=== PATIENT | male | born 1960 | race Caucasian/White ===

== ENCOUNTER → 2017-02-27 | Outpatient (CLI) | payer OTHER ==
--- NOTE | 2017-02-27 13:02 | US ---
EXAMINATION TYPE: US gallbladder DATE OF EXAM: 02/27/2017 COMPARISON: NONE CLINICAL HISTORY: K81.1 chronic cholecystitis. pt states ABD pain x 2 months EXAM MEASUREMENTS: Liver Length: 22.7 cm Gallbladder Wall: 0.2 cm CBD: 0.6 cm Right Kidney: 11.1 x 4.7 x 5.4 cm Pancreas: wnl, tail obscured by overlying bowel gas Liver: Enlarged, heterogeneous, difficult to penetrate, probable fatty sparing near GB Gallbladder: wnl Evidence for sonographic Beyer's sign: No CBD: wnl Right Kidney: wnl IMPRESSION: No gallstones or ultrasound evidence for acute cholecystitis. Diffuse fatty infiltration of liver is noted.
--- NOTE | 2017-02-27 15:41 | NM ---
Nuclear medicine hepatobiliary scan. HISTORY: Pain. The patient received 8 ounces of ensure plus and 5 mCi of Technetium 99m Choletec. There is normal hepatic extraction. The gallbladder is seen by 15 minutes. There is biliary to doyle l clearance by 30 minutes. Ejection fraction is 40%. IMPRESSION: 1. No evidence of cholecystitis. Borderline ejection fraction of 40%. Correlate clinically.
== END | disposition home or self-care (01) ==
LOC: RADUSMAIN 12:08
PROVIDERS: ATTEND Surgery
DX: K76.0 Fatty (change of) liver, not elsewhere classified (principal); R10.13 Epigastric pain
CPT/HCPCS: 76705; 78226; A9537

== ENCOUNTER 2017-03-09 07:28 | Day surgery (SDC) | payer OTHER ==
[2017-03-08 08:29] VITALS: BMI 31.7
[~2017-03-09 07:28] MED LIST: LACTATED RINGERS 1,000 ML IV SCH
[2017-03-09 07:41] VITALS: RESP 18; TEMP 97.8
[2017-03-09] MEDS ORDERED: PROPOFOL 10 MG/ML 20 ML VIAL IV ONE (07:53)
[2017-03-09] MEDS ORDERED: LIDOCAINE 1% INJ 10MG/ML (20 ML MDV) ONE (07:53)
--- NOTE | 2017-03-09 07:57 | P.GSHP ---
History of Present Illness H&P Date: 03/09/17 Chief Complaint: GERD, epigastric pain Is a 56-year-old male who presents today for EGD. He's had issues with epigastric pain and some GERD symptoms. His recent HIDA scan showed an ejection fraction 40% his ultrasound gallbladder normal. - Constitutional Constitutional: Reports as per HPI Past Medical History Past Medical History: GERD/Reflux History of Any Multi-Drug Resistant Organisms: None Reported Past Surgical History: Hernia Repair Past Anesthesia/Blood Transfusion Reactions: No Reported Reaction Smoking Status: Never smoker - Past Family History Father Family Medical History: Cancer Mother Family Medical History: Deep Vein Thrombosis (DVT) Medications and Allergies Home Medications Medication Instructions Recorded Confirmed Type No Known Home Medications [No 03/08/17 03/09/17 History Known Home Medications] Allergies Allergy/AdvReac Type Severity Reaction Status Date / Time No Known Allergies Allergy Verified 03/09/17 07:42 Surgical - Exam Vital Signs Temp Pulse Resp BP Pulse Ox 97.8 F 78 18 147/92 97 03/09/17 07:41 03/09/17 07:41 03/09/17 07:41 03/09/17 07:41 03/09/17 07:41 - General well developed, no distress - Eyes PERRL - ENT normal pinna - Neck no masses, no bruits - Respiratory normal expansion - Cardiovascular Rhythm: regular - Abdomen Abdomen: soft, non tender Assessment and Plan Plan: GERD, epigastric dull pain. We'll perform EGD.
--- NOTE | 2017-03-09 08:10 | P.OP ---
Date of Procedure: 03/09/17 Preoperative Diagnosis: Epigastric abdominal pain Postoperative Diagnosis: Duodenitis Mild antral gastritis Procedure(s) Performed: EGD Implants: Anesthesia: MAC Surgeon: Jose Alberts Pathology: other (Duodenum, antrum) Condition: stable Disposition: PACU Indications for Procedure: Operative Findings: Description of Procedure: The patient's placed on the endoscopy table in the lateral position. He received IV sedation. The gastroscope placed oropharynx passed in the esophagus and stomach. Scope was then placed through the pylorus. The first and second portion of the duodenum appeared minimally inflamed and a biopsies performed. Scope was then brought back into the antrum and the biopsy performed. The antrum was inflamed. The scope was unretroflexed and remainder stomach appeared normal. The GE junction was at 47. There is no significant hiatal hernia. The distal esophagus appeared normal. Proximal esophagus appeared normal. The scope was withdrawn for patient.
[2017-03-09 08:40] VITALS: BP 136/92; PULSE 75
== END 2017-03-09 08:53 | disposition home or self-care (01) ==
LOC: ORWHC2ENDO 07:28
PROVIDERS: ATTEND Surgery
DX: K21.9 Gastro-esophageal reflux disease without esophagitis (principal); K29.50 Unspecified chronic gastritis without bleeding; K29.80 Duodenitis without bleeding
CPT/HCPCS: 43239; 88305; 88342; J2001; J2704

== ENCOUNTER 2017-04-20 07:41 | Day surgery (SDC) | payer OTHER ==
[2017-04-18 09:39] VITALS: BMI 30.5
[2017-04-20 08:02] VITALS: RESP 16; TEMP 98
[2017-04-20] MEDS ORDERED: LIDOCAINE 1% 20 ML VIAL (10MG/ML) FOR IV START INTRADERMA ONE (08:07)
[2017-04-20] MEDS ORDERED: PROPOFOL 10 MG/ML 20 ML VIAL IV ONE (09:01)
[2017-04-20] MEDS ORDERED: LIDOCAINE 1% INJ 10MG/ML (20 ML MDV) ONE (09:01)
--- NOTE | 2017-04-20 09:12 | P.GSHP ---
History of Present Illness H&P Date: 04/20/17 Chief Complaint: Gastritis, epigastric pain This a 56-year-old male referred from Dr. Will Green. Patient's had complaints of epigastric pain. He's had a previous history of H. pylori gastritis. He presents today for EGD. Past Medical History Past Medical History: GERD/Reflux, Osteoarthritis (OA) Additional Past Medical History / Comment(s): aortic aneurysm(small), ulcers, "bacteria in stomach", bloating and abdominal pain, History of Any Multi-Drug Resistant Organisms: None Reported Past Surgical History: Hernia Repair Additional Past Surgical History / Comment(s): EGD, reconstruction rt hand middle finger, Past Anesthesia/Blood Transfusion Reactions: Motion Sickness Smoking Status: Never smoker - Past Family History Father Family Medical History: Cancer Mother Family Medical History: Deep Vein Thrombosis (DVT) Medications and Allergies Home Medications Medication Instructions Recorded Confirmed Type Meloxicam [Mobic] 7.5 mg PO BID 04/18/17 04/18/17 History Omeprazole [PriLOSEC] 20 mg PO AC-BID 04/18/17 04/18/17 History Allergies Allergy/AdvReac Type Severity Reaction Status Date / Time No Known Allergies Allergy Verified 04/20/17 08:01 Surgical - Exam Vital Signs Temp Pulse Resp BP Pulse Ox 98.0 F 80 16 134/90 95 04/20/17 08:00 04/20/17 08:00 04/20/17 08:00 04/20/17 08:00 04/20/17 08:00 - General well developed, no distress - Eyes PERRL - ENT normal pinna - Neck no masses - Respiratory normal expansion - Cardiovascular Rhythm: regular - Abdomen Abdomen: soft, non tender Assessment and Plan Plan: History of H pylori gastritis. We'll perform EGD.
--- NOTE | 2017-04-20 09:21 | P.OP ---
Date of Procedure: 04/20/17 Preoperative Diagnosis: Gastritis Postoperative Diagnosis: Mild antral gastritis Procedure(s) Performed: EGD Implants: Anesthesia: SHARONA Surgeon: Jose Alberts Pathology: other (Antrum) Condition: stable Disposition: PACU Indications for Procedure: Operative Findings: Description of Procedure: The patient's placed on the endoscopy table in the lateral position. He received IV sedation. The gastroscope some placed oropharynx and passed into the esophagus and into the stomach. Scope was then placed through the pylorus. The first and second portion of the duodenum appeared normal. The scope was then brought back the antrum and this appeared mildly inflamed. A biopsies performed. The scope was unretroflexed and remainder stomach appeared normal. There was a questionable small hiatal hernia. The GE junction was at 40 cm. The distal esophagus appeared normal. The proximal esophagus appeared normal. Scope was withdrawn for patient.
[2017-04-20 09:41] VITALS: BP 147/100; PULSE 67
== END 2017-04-20 09:58 | disposition home or self-care (01) ==
LOC: ORWHC2ENDO 07:41
PROVIDERS: ATTEND Surgery
DX: K29.50 Unspecified chronic gastritis without bleeding (principal); K21.9 Gastro-esophageal reflux disease without esophagitis; M19.90 Unspecified osteoarthritis, unspecified site; Z79.899 Other long term (current) drug therapy
CPT/HCPCS: 88305; 88342; 43239; J2001; J2704

== ENCOUNTER → 2017-05-11 | Outpatient (CLI) | payer OTHER ==
--- NOTE | 2017-05-11 16:17 | CT ---
EXAMINATION TYPE: CT angio abd aorta wo/w con DATE OF EXAM: 05/11/2017 COMPARISON: NONE HISTORY: AAA CT DLP: 1394.6 mGycm, Automated Exposure Control for Dose Reduction was Utilized. CONTRAST: CT scan of the abdomen and pelvis is performed with oral and without and with IV Contrast, patient in jected with 100 mL of Omnipaque 300. TECHNIQUE: Helical acquisition through the abdomen was obtained with and without intravenous administ ration of 100 cc of Omnipaque 300. The data was reformatted in axial, coronal and sagittal projection s. Three-dimensional by rendered imaging was also performed at the CT scanner. FINDINGS: Visualized portions of the lungs are clear. There is no pleural or pericardial fluid. The h eart is not enlarged. Within the abdomen, the gallbladder is contracted. The liver is enlarged measuring 23 cm. The liver i s fatty infiltrated. The spleen is enlarged measuring 16 cm. Both adrenal glands are normal. Both kidneys demonstrate function and appear morphologically normal. The pancreas is unremarkable. There is no significant retroperitoneal adenopathy. Both large and small bowel appear normal. The appendix is not visualized. The aorta is normal in caliber. The celiac, SMA, renal arteries and SOHA are all patent. The internal/ external iliacs are patent. There is no free fluid and no free air. There is degenerative disc disease and hypertrophic spondylosis in the spine. There is mild facet art hropathy in the lower lumbar spine. IMPRESSION: 1. NO EVIDENCE OF AORTIC ANEURYSM AT THIS TIME. 2. HEPATOSPLENOMEGALY AND FATTY INFILTRATION OF THE LIVER.. 3. DEGENERATIVE CHANGE WITHIN THE SPINE.
== END | disposition home or self-care (01) ==
LOC: RADCTMAIN 15:26
PROVIDERS: ATTEND Family Medicine
DX: K76.0 Fatty (change of) liver, not elsewhere classified (principal); R16.2 Hepatomegaly with splenomegaly, not elsewhere classified
CPT/HCPCS: 75635; Q9967

== ENCOUNTER → 2017-06-20 | Outpatient (CLI) | payer OTHER ==
--- NOTE | 2017-06-21 08:02 | CT ---
EXAMINATION TYPE: CT angio abdomen DATE OF EXAM: 06/20/2017 COMPARISON: CTA May 11, 2017 HISTORY: AAA. CT DLP: 1337 mGycm, Automated Exposure Control for Dose Reduction was Utilized. CONTRAST: CTA scan of the abdomen is performed without oral and without and with IV Contrast, patient injected with 100 mL of Omnipaque 350. Three-D reconstructed images are created on independent workstation and reviewed FINDINGS: VASCULAR: Visualized aorta is mildly ectatic with mild to minimal peripheral plaque. There is no aneu rysm identified. There is a patent celiac axis, SMA, bilateral single renal arteries, and SOHA. The co mmon iliac arteries are patent without significant plaque or stenosis. There is patency through [facility] internal/external iliac arteries without significant plaque or stenosis or aneurysmal change. LUNG BASES: No significant abnormality is appreciated. LIVER/GB: Noncontrast images show liver to be diffusely hypodense consistent with fatty infiltration. Liver is mildly enlarged. Gallbladder is contracted. PANCREAS: No significant abnormality is seen. SPLEEN: Splenomegaly is redemonstrated measuring 15.7 cm in long axis on axial image 24. ADRENALS: No significant abnormality is seen. KIDNEYS: No significant abnormality is seen. BOWEL: No significant abnormality is seen. LYMPH NODES: No greater than 1cm abdominal lymph nodes are appreciated. OSSEOUS STRUCTURES: There is mild to moderate multilevel spurring in the spine. There is some facet a rthropathy lower lumbar levels. OTHER: No significant additional abnormality is seen. IMPRESSION: No CT evidence for abdominal aortic aneurysm. No significant change from prior.
== END | disposition home or self-care (01) ==
LOC: RADCTMAIN 18:45
PROVIDERS: ATTEND Family Medicine
DX: I71.4 Abdominal aortic aneurysm, without rupture (principal)
CPT/HCPCS: 74175; Q9967

== ENCOUNTER → 2017-11-20 | Outpatient (CLI) | payer OTHER ==
--- NOTE | 2017-11-21 10:44 | XR ---
EXAMINATION TYPE: XR Hip Complete RT DATE OF EXAM: 11/20/2017 COMPARISON: NONE HISTORY: Pain TECHNIQUE: 2 views submitted FINDINGS: There is no evidence of erosive change or acute fracture. Concentric narrowing of the joint space. IMPRESSION: 1. No evidence of acute fracture or dislocation. 2. Right hip arthropathy.
--- NOTE | 2017-11-21 10:48 | XR ---
EXAM TYPE: LUMBAR SPINE X RAY SERIES COMPARISON: NONE HISTORY: Low back pain TECHNIQUE: 4 views are submitted. FINDINGS: Alignment is anatomic. The pedicles are intact. The transverse processes are intact. There is no s pondylolysis or spondylolisthesis. Hypertrophic and degenerative disc disease noted. Moderate severe changes at L3-S1. Moderate degenerative disc disease L-1-L2 IMPRESSION: 1. Multilevel moderate to severe degenerative disc disease consider MRI follow-up.
== END | disposition home or self-care (01) ==
LOC: RADXRMAIN 16:03
PROVIDERS: ATTEND Family Medicine
DX: M51.36 Other intervertebral disc degeneration, lumbar region (principal); M12.851 Other specific arthropathies, not elsewhere classified, right hip
CPT/HCPCS: 72110; 73502

== ENCOUNTER → 2017-12-04 | Outpatient (CLI) | payer OTHER ==
[~2017-12-04] MED LIST changes: -LACTATED RINGERS 1,000 ML IV SCH; +REGADENOSON 0.4 MG/5 ML SYRINGE IV ONE
--- NOTE | 2017-12-04 12:31 | NM ---
EXAMINATION TYPE: NM stress lexiscan cardiolite DATE OF EXAM: 12/04/2017 COMPARISON: NONE HISTORY: Chest pain, R07.9 TECHNIQUE: After the intravenous administration of 11.1 mCi Tc 99m Sestamibi - Cardiolite resting SP ECT images acquired 45 minutes post injection. The patient received 0.4mg Lexiscan, 26.2 mCi Tc 99m Sestamibi - Stress images obtained [address] injection FINDINGS: Review of stress and rest SPECT images demonstrates no distinct perfusion abnormality. Gated analysi s shows normal wall motion with an estimated left ventricular ejection fraction of 59 %. IMPRESSION: No scintigraphic evidence for reversible ischemia.
--- NOTE | 2017-12-04 21:41 | EST ---
EXERCISE STRESS DATE OF SERVICE: 12/04/17 AGE: 57 SEX: Male HT: 6'2" WT: 248 lb HEART RATE REST: 81 BLOOD PRESSURE REST: 143/92 MAXIMUM HEART RATE ACHIEVED: 165 MAXIMUM BLOOD PRESSURE: 166/98 85% MPHR: 139 100% MPHR: 164 INDICATIONS: Chest pain. CLINICAL INFORMATION: Chest pain. RESULTS: Baseline EKG revealed normal sinus rhythm with leftward axis. Nonspecific ST-T changes were noted in the inferior lateral leads. With Lexiscan administration, heart rate changed from 81 to 105 beats per minute. Blood pressure changed from 143/90 to 166/98. EKG remained inconclusive and patient had some chest heaviness that was very transient. By EKG criteria, this is an inconclusive Lexiscan stress test because of resting EKG changes. The nuclear scan results which are more pertinent, will be reported by the radiologist. MU / ROBERT: [id number] /
== END | disposition home or self-care (01) ==
LOC: RADNMMAIN 08:09
PROVIDERS: ATTEND Family Medicine
DX: R07.9 Chest pain, unspecified (principal); R94.131 Abnormal electromyogram [EMG]
CPT/HCPCS: 93017; 78452; A9500; J2785

== ENCOUNTER → 2017-12-12 | Outpatient (CLI) | payer OTHER ==
[2017-12-12 19:13] LABS: Blood Urea Nitrogen 19 mg/dL (9-20)
--- NOTE | 2017-12-13 06:22 | CT ---
EXAMINATION TYPE: CT pelvis w con DATE OF EXAM: 12/12/2017 COMPARISON: NONE HISTORY: 57-year-old male Right inguinal hernia, pain in hip x 1 year. TECHNIQUE: Contiguous axial scanning of the pelvis following administration of 100 ml Omnipaque 300 I V contrast. Delayed images through the bladder and coronal/sagittal reconstructions performed. CT DLP: 1571.6 mGycm Automated exposure control for dose reduction was used. FINDINGS: Visualized lower abdomen shows no dilated small bowel loops or retroperitoneal lymphadenopathy. Nina l appendix. No free fluid. No significant stool burden or pericolonic inflammatory change in the visu alized portions. Bladder is urine distended. Prostate gland measures 4.5 cm wide. No abnormal fluid collection in the pelvis or pelvic lymphadenopathy seen. There are small bilateral fat-containing indirect inguinal hernias. No femoral canal or obturator can al hernia. Bones: Mild degenerative changes at the hips and degenerative disc disease in the mid and lower lumba r spine. IMPRESSION: SMALL BILATERAL FAT-CONTAINING INDIRECT INGUINAL HERNIAS RELATIVELY SIMILAR FROM SIDE TO SIDE. THESE COULD POTENTIALLY BECOME ACCENTUATED WITH VALSALVA MANEUVER.
== END | disposition home or self-care (01) ==
LOC: RADCTMAIN 17:41
PROVIDERS: ATTEND Surgery
DX: K40.20 Bilateral inguinal hernia, without obstruction or gangrene, not specified as recurrent (principal)
CPT/HCPCS: 82565; 84520; 72193; 36415; Q9967

== ENCOUNTER → 2017-12-15 | Outpatient (CLI) | payer OTHER ==
--- NOTE | 2017-12-16 12:28 | ECHOF ---
Referral Reason:R07.9 Chest Pain MEASUREMENTS -------- HEIGHT: 188.0 cm WEIGHT: 112.5 kg BP: 163/99 RVIDd: 2.7 cm (< 3.3) IVSd: 1.3 cm (0.6 - 1.1) LVIDd: 4.2 cm (3.9 - 5.3) LVPWd: 1.1 cm (0.6 - 1.1) IVSs: 1.6 cm LVIDs: 2.7 cm LVPWs: 1.6 cm LAESV Index (A-L): 20.19 ml/m Ao Diam: 4.1 cm (2.0 - 3.7) AV Cusp: 2.1 cm (1.5 - 2.6) LA Diam: 2.8 cm (2.7 - 3.8) MV EXCURSION: 11.800 mm (> 18.000) MV EF SLOPE: 58 mm/s (70 - 150) EPSS: 0.8 cm MV E Bernardo: 0.66 m/s MV DecT: 383 ms MV A Bernardo: 0.84 m/s MV E/A Ratio: 0.79 AV maxP.84 mmHg AV meanP.72 mmHg RAP: 5.00 mmHg RVSP: 9.06 mmHg FINDINGS -------- Sinus rhythm. This was a technically good study. The left ventricular size is normal. There is mild concentric left ventricular hypertrophy. Overa ll left ventricular systolic function is normal with, an EF between 55 - 60 %. The right ventricle is normal in size and function. Normal LA size by volume 22+/-6 ml/m2. The right atrium is normal in size. Aortic valve is trileaflet and is mildly thickened. There is no evidence of aortic regurgitation. There is no evidence of aortic stenosis. The mitral valve is normal. There is trace mitral regurgitation. Trace tricuspid regurgitation present. Right ventricular systolic pressure is normal at < 35 mmHg. There is no evidence of pulmonary hypertension. The pulmonic valve was not well visualized. The aortic root and ascending aorta are dilated measuring up to 3.8 cm. Normal inferior vena cava with normal inspiratory collapse consistent with estimated right atrial pre ssure of 5 mmHg. There is no pericardial effusion. CONCLUSIONS -------- 1. Sinus rhythm. 2. This was a technically good study. 3. The left ventricular size is normal. 4. There is mild concentric left ventricular hypertrophy. 5. Overall left ventricular systolic function is normal with, an EF between 55 - 60 %. 6. Normal LA size by volume 22+/-6 ml/m2. 7. Aortic valve is trileaflet and is mildly thickened. 8. There is trace mitral regurgitation. 9. Trace tricuspid regurgitation present. 10. Right ventricular systolic pressure is normal at < 35 mmHg. 11. There is no evidence of pulmonary hypertension. 12. The pulmonic valve was not well visualized. 13. The aortic root and ascending aorta are dilated measuring up to 3.8 cm. 14. There is no pericardial effusion. WORD PROCESSING SPECIALIST: Grady Mota RDCS
== END | disposition home or self-care (01) ==
LOC: RADECHMAIN 15:49
PROVIDERS: ATTEND Family Medicine
DX: I35.1 Nonrheumatic aortic (valve) insufficiency (principal); I51.7 Cardiomegaly
CPT/HCPCS: 93306

== ENCOUNTER 2017-12-27 11:34 | Day surgery (SDC) | payer OTHER ==
[2017-12-26 12:33] VITALS: BMI 31.8
[~2017-12-27 11:34] MED LIST changes: +DEXAMETHASONE SOD PHOSPHATE 10 MG/ML 1 ML VIAL IV ONE; +HEPARIN SODIUM,PORCINE 5,000 UNIT/ML 1 ML VIAL SQ ONE; +LIDOCAINE 1% 20 ML VIAL (10MG/ML) FOR IV START INTRADERMA PRN; +MORPHINE SULFATE 2 MG/ML SYRINGE IV PRN; +ONDANSETRON 4 MG/2 ML VIAL IVP ONE; -REGADENOSON 0.4 MG/5 ML SYRINGE IV ONE; +SCOPOLAMINE 1.5MG/72HR PATCH TRANSDERM ONE; +ceFAZolin IN SWFI 2 GM/20 ML SYRINGE IVP ONE
[2017-12-27] MEDS: LACTATED RINGERS 1,000 ML IV SCH ×2 (13:50→13:55)
[2017-12-27 14:00] LABS: Glucose,Whole Blood 119 mg/dL (75-99)
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
[2017-12-27] MEDS ORDERED: NEOSTIGMINE 1 MG/ML 10 ML VIAL ONE (14:57)
[2017-12-27] MEDS ORDERED: MIDAZOLAM 2 MG/2 ML VIAL ONE (14:57)
[2017-12-27] MEDS ORDERED: ROCURONIUM BROMIDE 10 MG/ML 10 ML VIAL IV ONE (14:57)
[2017-12-27] MEDS ORDERED: MORPHINE SULFATE 10 MG/ML SYRINGE ONE (14:57)
[2017-12-27] MEDS ORDERED: SUCCINYLCHOLINE CHLORIDE 100 MG/5 ML SYR IV ONE (14:57)
[2017-12-27] MEDS ORDERED: GLYCOPYRROLATE 0.2 MG/ML 2 ML VIAL ONE (14:57)
[2017-12-27] MEDS ORDERED: fentaNYL (PF) 50 MCG/ML 2 ML AMP ONE (14:57)
[2017-12-27] MEDS ORDERED: LIDOCAINE 1% INJ 10MG/ML (20 ML MDV) ONE (14:57)
[2017-12-27] MEDS ORDERED: KETOROLAC 30 MG/ML 1 ML VIAL ONE (14:57)
[2017-12-27] MEDS ORDERED: PROPOFOL 10 MG/ML 20 ML VIAL IV ONE (14:57)
[2017-12-27] MEDS ORDERED: BUPIVACAINE (PF) 0.25% 30 ML VIAL SQ ONE (15:13)
[2017-12-27 16:20] VITALS: TEMP 97.3
[2017-12-27] MEDS: fentaNYL (PF) 50 MCG/ML 2 ML AMP IVP ONE ×2 (16:30→16:33)
[2017-12-27 16:39] LABS: Glucose,Whole Blood 167 mg/dL (75-99)
[2017-12-27 17:05] VITALS: RESP 18
[2017-12-27 17:49] VITALS: BP 128/78; PULSE 68
--- NOTE | 2017-12-28 11:39 | P.OP ---
Date of Procedure: 12/27/17 Preoperative Diagnosis: Bilateral hernias Postoperative Diagnosis: Bilateral inguinal hernias Procedure(s) Performed: Laparoscopic robotic system repair of bilateral inguinal hernia Anesthesia: JAZMÍN Surgeon: Jose Alberts Estimated Blood Loss (ml): 5 Pathology: none sent Condition: stable Disposition: PACU Description of Procedure: The patient's placed on the operating table in the supine position. The patient received general anesthesia. The patient's abdomen was prepped and draped in usual sterile fashion. The skin was anesthetized 1% local Xylocaine at the incision sites. Using an 11 blade a skin incision was made at the umbilicus. The fascia was grasped with a [place] and then the peritoneal cavity was entered with the Veress needle. Position of the Veress needle was confirmed with a positive drop test. After adequate insufflation a 5 mm trocar was placed into the peritoneal cavity. The Laparoscope was placed the peritoneal cavity. And a robotic 8 mm trocar was placed in the right lateral position and then another 8 mm robotic trochars placed in the left lateral position. The original 5 mm trocar was exchanged for a 12 mm trocar. The patient was placed in reverse Trendelenburg and then the patient was docked to the robot. Next the peritoneum over top of the right inguinal hernia was incised and then using blunt and sharp dissection and electrocautery the hernia sac was dissected free from the floor of the inguinal canal. The hernia sac was completely reduced into the peritoneal cavity. And then using the Pro chopping machine operator mesh the hernia was repaired. The peritoneum was then sutured with 20V lock suture. Next the peritoneum over top of the left inguinal hernia was incised and then using blunt and sharp dissection and electrocautery the hernia sac was dissected free from the floor of the inguinal canal. The hernia sac was completely reduced into the peritoneal cavity. And then using the Pro chopping machine operator mesh the hernia was repaired. The peritoneum was then sutured with 20V lock suture. The patient was then undocked the robot. The needle was withdrawn from the peritoneal cavity. The umbilical trocar site was closed with 0 Ethibond suture. The skin was closed interrupted 3-0 Monocryl suture. Dermabond dressing was applied. Patient was sent to recovery in stable condition.
== END 2017-12-27 17:50 | disposition home or self-care (01) ==
LOC: OR 11:34
PROVIDERS: ATTEND Surgery
DX: K40.20 Bilateral inguinal hernia, without obstruction or gangrene, not specified as recurrent (principal); E11.9 Type 2 diabetes mellitus without complications; K21.9 Gastro-esophageal reflux disease without esophagitis; E78.5 Hyperlipidemia, unspecified; I10 Essential (primary) hypertension; M19.90 Unspecified osteoarthritis, unspecified site; I71.9 Aortic aneurysm of unspecified site, without rupture; Z79.1 Long term (current) use of non-steroidal anti-inflammatories (NSAID); Z79.84 Long term (current) use of oral hypoglycemic drugs; Z79.899 Other long term (current) drug therapy

== ENCOUNTER 2018-04-04 07:11 | Day surgery (SDC) | payer OTHER ==
[2018-04-02 14:23] VITALS: BMI 31.8
[~2018-04-04 07:11] MED LIST changes: -DEXAMETHASONE SOD PHOSPHATE 10 MG/ML 1 ML VIAL IV ONE; -HEPARIN SODIUM,PORCINE 5,000 UNIT/ML 1 ML VIAL SQ ONE; +LACTATED RINGERS 1,000 ML IV SCH; -LIDOCAINE 1% 20 ML VIAL (10MG/ML) FOR IV START INTRADERMA PRN; -MORPHINE SULFATE 2 MG/ML SYRINGE IV PRN; -ONDANSETRON 4 MG/2 ML VIAL IVP ONE; -SCOPOLAMINE 1.5MG/72HR PATCH TRANSDERM ONE; -ceFAZolin IN SWFI 2 GM/20 ML SYRINGE IVP ONE
[2018-04-04 07:36] VITALS: TEMP 98.3
[2018-04-04 07:37] LABS: Glucose,Whole Blood 148 mg/dL (75-99)
[2018-04-04] MEDS ORDERED: PROPOFOL 10 MG/ML 20 ML VIAL IV ONE (07:41)
[2018-04-04] MEDS ORDERED: fentaNYL (PF) 50 MCG/ML 2 ML AMP ONE (07:41)
--- NOTE | 2018-04-04 07:44 | P.GSHP ---
History of Present Illness H&P Date: 04/04/18 Chief Complaint: Screening colonoscopy Stay 57-year-old male referred from Dr. Will Green. Patient presents today for screening colonoscopy. He denies a significant GI complaints. Past Medical History Past Medical History: Diabetes Mellitus, GERD/Reflux, Hyperlipidemia, Hypertension, Osteoarthritis (OA) Additional Past Medical History / Comment(s): abdominal pain,aortic aneurysm( small), ulcers, "bacteria in stomach" History of Any Multi-Drug Resistant Organisms: None Reported Past Surgical History: Hernia Repair, Orthopedic Surgery Additional Past Surgical History / Comment(s): robotic zuhair inguinal hernia repair,EGD, reconstruction rt hand middle finger, right shoulder surg. Past Anesthesia/Blood Transfusion Reactions: No Reported Reaction Smoking Status: Never smoker - Past Family History Father Family Medical History: Cancer Additional Family Medical History / Comment(s): lung CA,adrenal,pacemaker Mother Family Medical History: Deep Vein Thrombosis (DVT) Medications and Allergies Home Medications Medication Instructions Recorded Confirmed Type Meloxicam [Mobic] 15 mg PO DAILY 04/18/17 04/02/18 History Omeprazole [PriLOSEC] 20 mg PO DAILY 04/18/17 04/02/18 History Lisinopril [Zestril] 10 mg PO QAM 12/26/17 04/02/18 History Rosuvastatin Calcium [Crestor] 20 mg PO DAILY 12/26/17 04/02/18 History metFORMIN HCL [Glucophage] 500 mg PO DAILY 12/26/17 04/02/18 History Allergies Allergy/AdvReac Type Severity Reaction Status Date / Time No Known Allergies Allergy Verified 04/02/18 14:08 Surgical - Exam Vital Signs Temp Pulse Resp BP Pulse Ox 98.3 F 91 16 122/88 93 L 04/04/18 07:33 04/04/18 07:33 04/04/18 07:33 04/04/18 07:33 04/04/18 07:33 - General well developed, no distress - Eyes PERRL - ENT normal pinna - Neck no masses - Respiratory normal expansion - Cardiovascular Rhythm: regular - Abdomen Abdomen: soft, non tender Results - Labs Abnormal Lab Results - Last 24 Hours (Table) 04/04/18 Range/Units 07:34 POC Glucose (mg/dL) 148 H (75-99) mg/dL Assessment and Plan Assessment: We'll perform screening colonoscopy.
--- NOTE | 2018-04-04 07:55 | P.OP ---
Date of Procedure: 04/04/18 Preoperative Diagnosis: Screening colonoscopy Postoperative Diagnosis: Large external hemorrhoids Procedure(s) Performed: Colonoscopy Anesthesia: MAC Surgeon: Jose Alberts Pathology: none sent Condition: stable Disposition: PACU Description of Procedure: PROCEDURE: The patient was placed on the endoscopy table in the lateral position. Digital rectal examination was performed which revealed large external hemorrhoids. The prostate was symmetrical without nodules. Flexible colonoscope was then placed in the patient's anus and passed throughout the entire colon. The ileocecal valve was visualized. The cecum, ascending, transverse, descending and sigmoid colon were normal. The rectum was normal as well. There were no masses, polyps or diverticula noted in the entire colon. SUMMARY OF FINDINGS: Large external hemorrhoids
[2018-04-04 08:21] VITALS: BP 127/87; PULSE 87; RESP 16
== END 2018-04-04 08:37 | disposition home or self-care (01) ==
LOC: ORWHC2ENDO 07:11
PROVIDERS: ATTEND Surgery
DX: Z12.11 Encounter for screening for malignant neoplasm of colon (principal); K64.4 Residual hemorrhoidal skin tags; E11.9 Type 2 diabetes mellitus without complications; K21.9 Gastro-esophageal reflux disease without esophagitis; E78.5 Hyperlipidemia, unspecified; I10 Essential (primary) hypertension; M19.90 Unspecified osteoarthritis, unspecified site; Z79.84 Long term (current) use of oral hypoglycemic drugs; Z79.1 Long term (current) use of non-steroidal anti-inflammatories (NSAID); Z79.899 Other long term (current) drug therapy
CPT/HCPCS: J3010; J2704; G0121

== ENCOUNTER → 2018-07-27 | Outpatient (CLI) | payer OTHER ==
--- NOTE | 2018-07-27 10:41 | US ---
EXAMINATION TYPE: US abdomen complete DATE OF EXAM: 07/27/2018 COMPARISON: CTA abdomen 2017. CLINICAL HISTORY: R10.9 abdominal pain. Abdomen pain EXAM MEASUREMENTS: Liver Length: 19.4 cm Gallbladder Wall: 0.2 cm CBD: 0.4 cm Spleen: 14.4 cm Right Kidney: 12.3 x 4.8 x 4.9 cm Left Kidney: 12.9 x 6.2 x 5.6 cm Pancreas: visualized portions wnl, limited by overlying midline bowel gas Liver: enlarged, heterogeneous, increased echogenicity, difficult to penetrate, 1.8cm hypoechoic are a near gallbladder, probable focal sparring Gallbladder: wnl Evidence for sonographic Beyer's sign: no CBD: visualized portions wnl, limited by overlying bowel gas Spleen: enlarged Right Kidney: wnl Left Kidney: wnl Upper IVC: wnl Abd Aorta: visualized portions wnl, limited by overlying midline bowel gas The visualized liver is mildly enlarged and heterogeneously hyperechoic consistent with diffuse fatty infiltration. Evaluation for focal masses is suboptimal due to the heterogeneity. No intrahepatic du ctal dilatation is seen. The intrahepatic portion of the IVC and visualized abdominal aorta are withi n normal limits. There is no evidence of cholelithiasis. Common bile duct is unremarkable. The vis ualized portions of the pancreas are homogenous. The spleen is enlarged without surrounding fluid. Kidneys are symmetric and free of hydronephrosis. No renal lesions are seen. IMPRESSION: Hepatosplenomegaly with fatty infiltration of liver redemonstrated. No new or acute findi ngs identified.
== END ==
LOC: RADUSWWP 08:21
PROVIDERS: ATTEND Family Medicine
DX: K76.0 Fatty (change of) liver, not elsewhere classified (principal); R16.2 Hepatomegaly with splenomegaly, not elsewhere classified
CPT/HCPCS: 76700

== ENCOUNTER → 2018-09-28 | Outpatient (CLI) | payer OTHER ==
--- NOTE | 2018-10-01 03:20 | MR ---
MR scan of the liver. History splenomegaly. Hepatomegaly. Comparison none. TECHNIQUE: Multiplanar multiecho imaging of the abdomen was performed with and without IV contrast. The contrast was gadolinium 11.5 mL. FINDINGS: Liver has fairly normal size. The spleen is large and measures 15.5 x 5.3 cm. I see no focal liver or spleen defect. The pancreas appears normal. Pancreatic duct is not dilated. Bile ducts are not dilat ed. Gallbladder appears normal. There is no adrenal mass. Kidneys show normal size and contour. There is no hydronephrosis. There is no evidence of ascites. Contrast images show no pathologic enhancement. There is no evidence of a discrete liver or spleen ma ss. The remainder of exam is unremarkable. IMPRESSION: Borderline splenomegaly. No focal liver defect. No dilated ducts.
== END | disposition home or self-care (01) ==
LOC: RADMRIMAIN 18:16
PROVIDERS: ATTEND Internal Medicine Hematology & Oncology
DX: R16.1 Splenomegaly, not elsewhere classified (principal)
CPT/HCPCS: 74183; A9585

== ENCOUNTER → 2018-11-06 | Outpatient (CLI) | payer OTHER ==
[2018-11-06 08:12] LABS: Albumin 4.4 g/dL (3.5-5.0); Bilirubin, Delta 0.2 mg/dL (0.0-0.2); Bilirubin,Unconjugated 0.6 mg/dL (0.0-1.1); Total Bilirubin 0.8 mg/dL (0.2-1.3); Total Protein 7.4 g/dL (6.3-8.2)
--- NOTE | 2018-11-06 09:43 | US ---
EXAMINATION TYPE: US liver DATE OF EXAM: 11/06/2018 COMPARISON: CT June 20, 2017. MRI liver September 28, 2018. CLINICAL HISTORY: Fatty Liver K76.0. on meds for HTN and diabetes EXAM MEASUREMENTS: Liver Length: 19.2 cm Gallbladder Wall: 0.2 cm CBD: 0.3 cm Right Kidney: 11.9 x 7.0 x 4.5 cm Pancreas: hyperechoic and tail obscured by overlying bowel gas Liver: fatty liver with area of focal sparing near gallbladder = 1.5x 1.3 x 2.3cm Gallbladder: wnl Evidence for sonographic Beyer's sign: no CBD: wnl Right Kidney: wnl Visualized pancreas shows no mass or ductal dilatation. Visualized liver is heterogeneously hyperecho ic. Evaluation for focal masses is suboptimal due to the heterogeneity. No suspicious masses are note d on recent MRI. No intrahepatic or extrahepatic ductal dilatation is seen. No surrounding ascites is present. Gallbladder is seen without shadowing mobile gallstones. Limited images right kidney show n o gross hydronephrosis. IMPRESSION: Diffuse fatty infiltration of liver redemonstrated.
== END | disposition home or self-care (01) ==
LOC: RADUSWWP 06:59
DX: K76.0 Fatty (change of) liver, not elsewhere classified (principal)
CPT/HCPCS: 76705; 80076

== ENCOUNTER → 2018-12-05 | Outpatient (CLI) | payer OTHER ==
--- NOTE | 2018-12-06 01:50 | MR ---
EXAMINATION TYPE: MR hip RT wo con DATE OF EXAM: 12/05/2018 COMPARISON: None HISTORY: Rt hip pain Standard multiplanar, multisequence MRI departmental protocol Multiplanar, multisequence images of the right hip were acquired. FINDINGS: The acetabula appear intact. Proximal femurs are intact. There is no sign of hip dysplasia. There is symmetric mild narrowing of hip joint spaces. There is symmetric joint fluid. There is no s ign of avascular necrosis. There is no evidence of soft tissue mass. There is no evidence of a pelvic mass. There is no free fluid in the pelvis. Bladder distends smoothly. IMPRESSION: Minimal hip joint space narrowing. No fracture. No evidence of avascular necrosis.
== END | disposition home or self-care (01) ==
LOC: RADMRIMAIN 19:10
PROVIDERS: ATTEND Orthopaedic Surgery
DX: M25.851 Other specified joint disorders, right hip (principal)

== ENCOUNTER → 2019-02-21 | Outpatient (CLI) | payer OTHER ==
--- NOTE | 2019-02-21 20:34 | CT ---
EXAMINATION TYPE: CT abdomen pelvis w con DATE OF EXAM: 02/21/2019 COMPARISON: CT pelvis 12/12/2017 and MRI abdomen 09/28/2018 HISTORY: 57-year-old male right inguinal hernia, RLQ pain TECHNIQUE: Contiguous axial scanning of the abdomen and pelvis following administration of 100 ml Iso nicolas 300 IV contrast. Delayed images through the kidneys and coronal/sagittal reconstructions perform ed. CT DLP: 1590.4 mGycm Automated exposure control for dose reduction was used. FINDINGS: Suspect some type of technical error as the degree of contrast opacification is limited. Borderline ectatic aortic root at 3.6 cm. Heart normal size. Visualized lung bases are clear without pleural effusion. Allowing for the limited contrast opacification, no focal liver lesion is seen. Liver is enlarged at 22.1 cm. No biliary ductal dilatation. Gallbladder, adrenal glands, kidneys, and pancreas show no gross abnormal mobility. Spleen enlarged at 16.0 cm. No dilated small bowel, free fluid, or free air. Scattered nonenlarged and borderline sized mesenteri c lymph nodes measuring up to 8 mm likely reactive/post inflammatory. Normal appendix. Scattered mild stool. No pericolonic inflammatory change. There seems to be bilateral lower quadrant mesh material this appears relatively symmetric. No recurr ent inguinal hernia is identified. No femoral canal hernia seen. Mild circumferential bladder wall thickening. Prostate gland measures 4.6 cm wide. Left-sided pelvic phleboliths. No abnormal fluid collection in the pelvis Bones: Degenerative changes at the hips. Degenerative spurring at the SI joints. Multilevel degenerat ale disc disease mid to lower lumbar spine. IMPRESSION: 1. NEW FROM 12/12/2017 IS BILATERAL ANTERIOR LOWER QUADRANT MESH REPAIR. NO RESIDUAL OR RECURRENT DARIN IA IS IDENTIFIED. 2. HEPATOSPLENOMEGALY (LIVER 22.1 CM AND SPLEEN 16.0 CM).
== END | disposition home or self-care (01) ==
LOC: RADCTMAIN 14:18
PROVIDERS: ATTEND Family Medicine
DX: R16.2 Hepatomegaly with splenomegaly, not elsewhere classified (principal); R10.31 Right lower quadrant pain
CPT/HCPCS: 74177; Q9967; 36415

== ENCOUNTER → 2019-03-30 | Outpatient (CLI) | payer OTHER ==
--- NOTE | 2019-03-30 14:21 | NM ---
EXAMINATION TYPE: NM hepatobiliary w CCK DATE OF EXAM: 03/30/2019 COMPARISON: NONE HISTORY: TECHNIQUE: After the intravenous administration of 4.74 mCi Tc 99m Mebrofenin hepatobiliary scintigra phy is performed. Immediate images post injection. FINDINGS: There is satisfactory initial accumulation of tracer by the liver. The gallbladder is visualized wit hin 12 minutes. The small bowel activity is noted within 60 minutes. At one hour CCK was administer ed, patient was injected with 2.2 mcg of Kinevac, and gallbladder ejection fraction is calculated at 7 %, IMPRESSION: No cystic duct or common bile duct obstruction. There is abnormal hypokinetic gallbladder ejection fraction of 7% with the CCK stimulation. No focal liver defect. Gallbladder is probably dil ated.
== END | disposition home or self-care (01) ==
LOC: RADNMMAIN 11:59
PROVIDERS: ATTEND Surgery
DX: K82.8 Other specified diseases of gallbladder (principal)
CPT/HCPCS: 78227; A9537; J2805

== ENCOUNTER 2019-04-17 09:24 | Day surgery (SDC) | payer OTHER ==
[2019-04-11 14:28] VITALS: BMI 30.8
[~2019-04-17 09:24] MED LIST changes: +HEPARIN SODIUM,PORCINE 5,000 UNIT/ML 1 ML VIAL SQ ONE; +KETOROLAC 30 MG/ML 1 ML VIAL IVP SCH; +LIDOCAINE 1% 20 ML VIAL (10MG/ML) FOR IV START INTRADERMA PRN; +ONDANSETRON 4 MG/2 ML VIAL IVP ONE; +ONDANSETRON 4 MG/2 ML VIAL IVP PRN; +SCOPOLAMINE 1.5MG/72HR PATCH TRANSDERM ONE
[2019-04-17 09:45] VITALS: RESP 16
--- NOTE | 2019-04-17 10:07 | P.GSHP ---
History of Present Illness H&P Date: 04/17/19 Chief Complaint: Right upper quadrant pain This a 58-year-old male with complaints were quadrant pain. His recent HIDA scan shows abnormal ejection fraction consistent with biliary dysfunction. He presents today for laparoscopic cholecystectomy Past Medical History Past Medical History: Diabetes Mellitus, Hyperlipidemia, Hypertension, Osteoarthritis (OA) Additional Past Medical History / Comment(s): aortic aneurysm(small), hx ulcers, History of Any Multi-Drug Resistant Organisms: None Reported Past Surgical History: Hernia Repair, Orthopedic Surgery Additional Past Surgical History / Comment(s): EGD, reconstruction rt hand middle finger, right shoulder surg. Past Anesthesia/Blood Transfusion Reactions: No Reported Reaction Smoking Status: Never smoker - Past Family History Father Family Medical History: Cancer Additional Family Medical History / Comment(s): . Mother Family Medical History: Deep Vein Thrombosis (DVT) Medications and Allergies Home Medications Medication Instructions Recorded Confirmed Type Meloxicam [Mobic] 15 mg PO DAILY 04/18/17 04/11/19 History Omeprazole [PriLOSEC] 20 mg PO DAILY 04/18/17 04/11/19 History Rosuvastatin Calcium [Crestor] 20 mg PO DAILY 12/26/17 04/11/19 History metFORMIN HCL [Glucophage] 500 mg PO DAILY 12/26/17 04/11/19 History Losartan [Cozaar] 50 mg PO DAILY 04/11/19 04/11/19 History Allergies Allergy/AdvReac Type Severity Reaction Status Date / Time No Known Allergies Allergy Verified 04/17/19 09:49 Surgical - Exam Vital Signs Temp Pulse Resp BP Pulse Ox 97.4 F L 72 16 164/85 95 04/17/19 09:38 04/17/19 09:38 04/17/19 09:38 04/17/19 09:38 04/17/19 09:38 - General well developed, well nourished, no distress - Eyes PERRL - ENT normal pinna - Neck no masses - Respiratory normal expansion - Cardiovascular Rhythm: regular - Abdomen Abdomen: soft, non tender Assessment and Plan Assessment: Biliary dysfunction Chronic cholecystitis We'll perform laparoscopic cholecystectomy.
[2019-04-17 10:10] LABS: Glucose,Whole Blood 131 mg/dL (75-99)
[2019-04-17] MEDS ORDERED: LIDOCAINE 1% INJ 10MG/ML (20 ML MDV) ONE (10:28)
[2019-04-17] MEDS ORDERED: MIDAZOLAM 2 MG/2 ML VIAL ONE (10:28)
[2019-04-17] MEDS ORDERED: ROCURONIUM BROMIDE 10 MG/ML 10 ML VIAL IV ONE (10:28)
[2019-04-17] MEDS ORDERED: KETOROLAC 30 MG/ML 1 ML VIAL ONE (10:28)
[2019-04-17] MEDS ORDERED: PROPOFOL 10 MG/ML 20 ML VIAL IV ONE (10:28)
[2019-04-17] MEDS ORDERED: SUCCINYLCHOLINE CHLORIDE 100 MG/5 ML SYR IV ONE (10:28)
[2019-04-17] MEDS ORDERED: fentaNYL (PF) 50 MCG/ML 2 ML AMP ONE (10:28)
[2019-04-17] MEDS ORDERED: GLYCOPYRROLATE 0.2 MG/ML 2 ML VIAL ONE (10:28)
[2019-04-17] MEDS ORDERED: NEOSTIGMINE 1 MG/ML 10 ML VIAL ONE (10:28)
[2019-04-17] MEDS ORDERED: BUPIVACAINE (PF) 0.5% 30 ML VIAL SQ ONE ×2 (10:30→10:57)
[2019-04-17] MEDS ORDERED: LACTATED RINGERS 1,000 ML IV ONE (11:07)
[2019-04-17] MEDS: HYDROmorphone 0.5 MG/0.5 ML SYRINGE IVP PRN ×4 (11:31→12:27)
[2019-04-17 11:36] VITALS: TEMP 96.8
[2019-04-17] MEDS ORDERED: ENALAPRILAT 1.25 MG/ML 1 ML VIAL IVP ONE (11:39)
--- NOTE | 2019-04-17 11:44 | P.OP ---
Date of Procedure: 04/17/19 Preoperative Diagnosis: Chronic cholecystitis Postoperative Diagnosis: Chronic cholecystitis Procedure(s) Performed: Laparoscopic cholecystectomy Anesthesia: JAZMÍN Surgeon: Jose Alberts Estimated Blood Loss (ml): 5 Pathology: other (Gallbladder) Condition: stable Disposition: PACU Description of Procedure: The patient was placed on the operating table. The patient received a general endotracheal tube anesthesia. The patients abdomen was prepped and draped in the usual sterile fashion. Through an infraumbilical stab incision, the fascia of the anterior abdominal wall was grasped with a pair of Kochers and then the Veress needle was placed in the peritoneal cavity. Position of the Veress needle was confirmed with positive drop test. The abdomen was then insufflated. After adequate insufflation, the 10 mm trocar was placed in the peritoneal cavity. Following this the laparoscope was placed in the peritoneal cavity. The patient was placed in the head-up, right side up position and then a 5 mm trocar was placed in the right lateral and right subcostal position under direct visualization. A 8 mm trocar was placed in the epigastric position. The gallbladder was grasped in the fundus and infundibulum. Traction on the gallbladder was placed in the lateral and the cephalad positions. The triangle of Calot was visualized.. The cystic duct was bluntly dissected until the union of the cystic duct and common bile duct was seen. A critical view of safety was achieved. The cystic duct was then divided and sealed with the Harmonic scissors. A PDS Endoloop was then placed throughout the cystic duct stump. The cystic artery divided and sealed with the Harmonic scissors. The gallbladder was then removed from the liver bed using Harmonic scissors. The gallbladder was then extracted through the epigastric port site. Operative field was checked for any bleeding spots and Harmonic scissors was used to coagulate the liver bed. The abdomen was irrigated. The trocars were removed. The skin was closed using interrupted 3-0 Vicryl suture. Dermabond dressing were applied. The patient tolerated the procedure well.
[2019-04-17 11:46] LABS: Glucose,Whole Blood 162 mg/dL (75-99)
[2019-04-17] MEDS ORDERED: hydrALAZINE HCL 20 MG/ML 1 ML VIAL IVP ONE (11:53)
[2019-04-17 13:39] VITALS: BP 119/81; PULSE 83
== END 2019-04-17 14:10 | disposition home or self-care (01) ==
LOC: OR 09:24
PROVIDERS: ATTEND Surgery
DX: K81.1 Chronic cholecystitis (principal); E11.9 Type 2 diabetes mellitus without complications; E78.5 Hyperlipidemia, unspecified; I10 Essential (primary) hypertension; M19.90 Unspecified osteoarthritis, unspecified site; Z79.84 Long term (current) use of oral hypoglycemic drugs; Z79.1 Long term (current) use of non-steroidal anti-inflammatories (NSAID); Z79.899 Other long term (current) drug therapy
CPT/HCPCS: 88304; 47562; J2250; J0360; J1644; J2710; J0690; J2405; J2001; J3010; J1885; J0330; J2704; J1170

== ENCOUNTER → 2019-05-31 | Outpatient (CLI) | payer OTHER ==
[2019-05-31 13:55] LABS: African American GFR (CKD) >90 (>60 ml/min/1.73 sqM); Blood Urea Nitrogen 14 mg/dL (9-20)
--- NOTE | 2019-06-01 10:04 | CT ---
EXAMINATION TYPE: CT angio chest DATE OF EXAM: 05/31/2019 COMPARISON: None HISTORY: Ascending aortic aneurysm CT DLP: 1249.90 mGycm CONTRAST: CTA thoracic aorta with 3-D reconstruction is performed and with IV Contrast, patient injected with 1 00 mL of Isovue 370. Contrast CTA of the thoracic aorta was performed from the lung apex through the upper abdomen. 3D re construction imaging obtained at a separate workstation. CT Chest: THORACIC AORTA: There is ascending thoracic aortic aneurysm measuring 4.1 cm AP dimension. Ascending thoracic aorta is of normal caliber. Mild atheromatous changes seen. There is no evidence for dissec tion or periaortic collection. LUNGS: The lungs are clear and free of infiltrate or atelectasis. No pulmonary nodule or mass is det ected. No pleural effusion or CT evidence of interstitial lung disease. MEDIASTINUM: No evidence for mediastinal hematoma. The heart is not enlarged. No evidence for med iastinal mass or adenopathy. HILAR STRUCTURES: No evidence for mass. No hilar adenopathy is appreciated. OTHER: No significant abnormality. IMPRESSION- Thoracic aortic aneurysm as noted.
== END | disposition home or self-care (01) ==
LOC: RADCTMAIN 13:08
PROVIDERS: ATTEND Family Medicine
DX: I71.2 Thoracic aortic aneurysm, without rupture (principal)
CPT/HCPCS: 82565; 84520; 71275; 36415; Q9967

== ENCOUNTER → 2020-12-07 | Outpatient (CLI) | payer OTHER ==
[2020-12-07 17:02] LABS: African American GFR (CKD) >90 (>60 ml/min/1.73 sqM); Blood Urea Nitrogen 14 mg/dL (9-20); Non-African American GFR(CKD) >90 (>60 ml/min/1.73 sqM)
--- NOTE | 2020-12-07 23:17 | CT ---
EXAMINATION TYPE: CT angio chest DATE OF EXAM: 12/07/2020 6:15 PM COMPARISON: CTA aorta May 31, 2019 HISTORY: thoracic aneurysm CT DLP: 448.5 mGycm Automated exposure control for dose reduction was used. CONTRAST: CTA scan of the thorax is performed with IV Contrast, patient injected with 100 mL of Isovue 370, ane urysm protocol. 3D reconstructed images are created on an independent workstation and reviewed.. FINDINGS: LUNGS: The lungs remain grossly clear, there is no concerning new parenchymal mass or nodule identifi ed. There is no pleural effusion or pneumothorax seen bilaterally. The tracheobronchial tree is pa tent. MEDIASTINUM: Ascending aorta measures 4.1 cm at origin coronal image 43 and up to 4.1 cm at level of main pulmonary artery image 26. No aneurysmal extension into arch or descending aorta. Normal three-v essel origin from aortic arch. Stable slightly ectatic proximal descending thoracic aorta up to 3.0 c m axial image 20. There are no new greater than 1 cm hilar or mediastinal lymph nodes. No cardiomeg raul or pericardial effusion is seen. OTHER: Slight scoliotic curvature. IMPRESSION: Stable 4.1 cm ascending thoracic aortic aneurysm.
== END | disposition home or self-care (01) ==
LOC: RADCTMAIN 16:29
PROVIDERS: ATTEND Thoracic Surgery (Cardiothoracic Vascular Surgery)
DX: I71.2 Thoracic aortic aneurysm, without rupture (principal)
CPT/HCPCS: 82565; 84520; 71275; 36415; Q9967

== ENCOUNTER → 2021-11-19 | Outpatient (CLI) | payer OTHER ==
[2021-11-19 08:21] LABS: African American GFR (CKD) >90 (>60 ml/min/1.73 sqM); Blood Urea Nitrogen 12 mg/dL (9-20); Non-African American GFR(CKD) >90 (>60 ml/min/1.73 sqM)
--- NOTE | 2021-11-19 11:16 | CT ---
EXAMINATION TYPE: CT angio chest DATE OF EXAM: 11/19/2021 COMPARISON: CT dated 12/07/2020 HISTORY: Aortic Aneurysm CT DLP: 457.5 mGy.cm. Automated Exposure Control for Dose Reduction was Utilized. TECHNIQUE AND CONTRAST: CTA scan of the thorax is performed with IV Contrast, patient injected with 100 mL of Isovue 370, tho rac aortic angiogram protocol. MIP and 3-D Images are created on CT scanner and reviewed. FINDINGS: Motion artifacts. Stable ascending aortic aneurysm measuring up to 4.1 cm without interval progressio n. Normal caliber of the remainder of the thoracic and upper abdominal aorta. No other significant th oracic aortic abnormality. Unremarkable major mediastinal arteries and upper abdominal arteries. No major or central pulmonary embolism. No cardiomegaly. No pleural or pericardial effusion. Unremark able lungs. Patent central airways. No pathologically enlarged lymph nodes in the chest. Previous cho lecystectomy. Slightly bulky spleen, please correlate clinically. Aggressive bone lesion. IMPRESSION: Stable ascending aortic aneurysm measuring up to 4.1 cm.
--- NOTE | 2021-11-19 13:10 | NM ---
"EXAMINATION TYPE: NM stress cardiolite complete DATE OF EXAM: 11/19/2021 COMPARISON: Prior exam 12/04/2017 HISTORY: TECHNIQUE: After the intravenous administration of 9.5 mCi Tc 99m Sestamibi - Rest images obtained 4 5 minutes post injection. The patient exercised using a UNIQUE protocol and 1 minute prior to peak e xercise was injected with 25.8 mCi Tc 99m Sestamibi - Stress images obtained 10 minutes post injectio n. FINDINGS: Targeted heart rate was achieved during performance of the study, patient achieved 98% of predicted m aximal heart rate. Review of stress and rest SPECT images demonstrates decreased radio pharmaceutical uptake along the i nferolateral left ventricle on stress as compared to rest images. Gated analysis shows normal wall m otion with an estimated left ventricular ejection fraction of 59 %. IMPRESSION: Stress-induced left ventricular myocardial ischemia A Yellow level critical message alert has been initiated for Will Hart MD via the [facility] 36 0 | Critical Results System on 11/19/2021 1:07 PM. This message alert has been sent to Will Hart MD via the preferences provided by the clinician for the receipt of Radiology Critical Findings. [facility] ID [id number]."
--- NOTE | 2021-11-19 14:05 | EST ---
EXERCISE STRESS AGE: 60 SEX: M HT: 6'2" WT: 235 lbs. PROTOCOL: Irwin STAGE: 3 DURATION OF EXERCISE: 7:00 HEART RATE REST: 63 BLOOD PRESSURE REST: 154/107 MAXIMUM HEART RATE ACHIEVED: 157 MAXIMUM BLOOD PRESSURE: 202/100 85% MPHR: 137 100% MPHR: 161 METS: 8.9 RESULTS: Baseline EKG revealed normal sinus rhythm without significant ST-T changes. There is evidence of IVCD with leftward axis. The patient walked on standard Irwin protocol for 7 minutes and achieved a maximal heart rate of 157 beats per minute which is more than 85% of predicted maximal. He developed fatigue, shortness of breath and had some vertigo. EKG remained inconclusive. Patient did not have angina. By EKG criteria, this is an inconclusive stress test because of resting EKG changes with IVCD. Exercise capacity was fairly decent. The patient did not have angina. The nuclear scan results which are more pertinent, will be reported by the radiologist. MMTAYAL / LASHAEN: [id number] /
== END | disposition home or self-care (01) ==
LOC: RADCTMAIN 07:03
PROVIDERS: ATTEND Family Medicine
DX: I71.2 Thoracic aortic aneurysm, without rupture (principal); I25.9 Chronic ischemic heart disease, unspecified
CPT/HCPCS: 93017; 82565; 84520; 71275; 36415; 78452; A9500; Q9967

== ENCOUNTER → 2022-12-09 | Outpatient (CLI) | payer OTHER ==
--- NOTE | 2022-12-09 09:41 | CT ---
EXAMINATION TYPE: CT chest wo con DATE OF EXAM: 12/09/2022 COMPARISON: CTA chest November 19, 2021 and older CTs HISTORY: Thoracic aneurysm CT DLP: 499.6 mGycm. Automated Exposure Control for Dose Reduction was Utilized. TECHNIQUE: CT scan of the thorax is performed without IV contrast. FINDINGS: LUNGS: The lungs are grossly clear, there is no concerning new greater than 5 mm parenchymal mass or nodule identified. There is no pleural effusion or pneumothorax seen. The tracheobronchial tree is patent. MEDIASTINUM: Lack of IV contrast is noted to limit evaluation for mediastinal and especially hilar ad enopathy. There are no definitive new greater than 1 cm mediastinal lymph nodes. No cardiomegaly or pericardial effusion is seen. Mild coronary artery calcification redemonstrated. There is ascending aortic aneurysm again seen. Aorta measures 3.6 cm at the root coronal image 46. Aorta measures up to 4.1 cm mid segment axial image 28 and 4.0 cm just superior to this at level of main pulmonary artery. There is a 4 vessel origin from the aorta which is a normal variant. No aneurysm into the descending aorta is identified. OTHER: Slight scoliotic curvature redemonstrated. IMPRESSION: Stable 4.1 cm and the aortic aneurysm. No significant change from most recent prior CTs.
== END | disposition home or self-care (01) ==
LOC: RADCTMAIN 08:51
PROVIDERS: ATTEND Surgery
DX: I71.21 Aneurysm of the ascending aorta, without rupture (principal)
CPT/HCPCS: 71250

== ENCOUNTER → 2023-03-10 | Outpatient (CLI) | payer OTHER ==
--- NOTE | 2023-03-10 12:06 | XR ---
EXAMINATION TYPE: XR hand complete RT, XR wrist complete RT DATE OF EXAM: 03/10/2023 CLINICAL HISTORY: M25.531 M79.641. Pain after recent injury. TECHNIQUE: Frontal, lateral and oblique images of the right hand and wrist are obtained. A fourth sc aphoid view right wrist is acquired. COMPARISON: None. FINDINGS: There is no acute fracture or dislocation in the right wrist. The carpal joint spaces are p reserved. Mild narrowing and spurring at base of first metacarpal. Mild narrowing and spurring at the triscaphe joint. Overlying vascular calcification is present. There is no acute fracture/dislocation evident in the right hand. There is acro-osteolysis or absenc e of the distal one half of the third distal phalanx noted. Mild to moderate narrowing throughout the PIP and DIP joints of the phalanges. Mild to moderate soft tissue swelling in the fingers greatest o philip the second finger. IMPRESSION: As above.
== END | disposition home or self-care (01) ==
LOC: RADXRMAIN 10:35
PROVIDERS: ATTEND Family Medicine
DX: M19.041 Primary osteoarthritis, right hand (principal); M25.231 Flail joint, right wrist; M79.89 Other specified soft tissue disorders

== ENCOUNTER → 2023-12-01 | Outpatient (CLI) | payer OTHER ==
--- NOTE | 2023-12-06 14:59 | CT ---
EXAMINATION TYPE: CT chest wo con CT DLP: 653 mGycm, Automated exposure control for dose reduction was used. DATE OF EXAM: 12/01/2023 8:29 AM COMPARISON: CT chest without contrast 12/09/2022 and before . CLINICAL INDICATION:Male, 63 years old with history of I71.20; PHH, f/u thoracic aneurysm TECHNIQUE: Multiple axial images were obtained through the chest. Sagittal and coronal reformats were created for review. Contrast used: mL of (None if empty) Oral contrast used: (None if empty) FINDINGS: Exam is limited by lack of contrast. LUNGS/ PLEURA: The lung parenchyma appears unremarkable. No pleural effusion effusion or pneumothora x. AIRWAY: Central airways are patent. LOWER NECK: No significant findings. Visualized thyroid is unremarkable. MEDIASTINUM: No enlarged mediastinal or hilar nodes are seen.. HEART: Normal heart size. Minimal coronary calcifications.. No appreciable pericardial effusion. VASCULATURE: Minimal atherosclerotic calcifications of the aorta and branches. Minimal aortic valve calcification. Aortic root is about 3.8 cm, appears unchanged. Fusiform aneurysm of the ascending aor ta redemonstrated, stable at 4.1 cm. Aorta tapers along the arch and the descending aorta again measures 2.8 cm. Pulmonary trunk measures 2.8 CM. Pulmonary trunk is normal in size. Vessels otherwise not further ass essed without contrast. SOFT TISSUES/LYMPH NODES: Mild bilateral gynecomastia like changes. No axillary adenopathy. UPPER ABDOMEN: Mild haziness of the fat adjacent to the upper abdominal aorta and roots of the mesent paige vessels, nonspecific but can be seen with vasculitis. No adrenal mass. MUSCULOSKELETAL: No acute osseous abnormalities. Mild disc degeneration changes are present throughou t the thoracolumbar spine. IMPRESSION: 1. Stable unenhanced appearance of the thoracic aorta, including 4.1 cm fusiform ascending aortic an eurysm. 2. Mild haziness of the fat adjacent to the upper abdominal aorta and roots of the mesenteric vessel s, nonspecific but can be seen with vasculitis.
== END | disposition home or self-care (01) ==
LOC: RADCTMAIN 07:30
PROVIDERS: ATTEND Surgery
DX: I71.21 Aneurysm of the ascending aorta, without rupture (principal); R93.5 Abnormal findings on diagnostic imaging of other abdominal regions, including retroperitoneum
CPT/HCPCS: 71250

== ENCOUNTER → 2024-03-07 | Outpatient (CLI) | payer OTHER ==
--- NOTE | 2024-03-08 10:32 | XR ---
EXAMINATION TYPE: XR Hip Complete RT DATE OF EXAM: 03/07/2024 3:40 PM CLINICAL INDICATION:Male, 63 years old with history of M25.551 PAIN IN RIGHT HIP; [facility] COMPARISON: 11/20/2017 TECHNIQUE: XR Hip Complete RT; hip was examined in the frontal and lateral projections and a AP pelvi s. FINDINGS: No evidence for acute process, joint dislocation or significant soft tissue swelling. Osteo phyte formation of the superior acetabulum of the hip. There is mild joint space narrowing. IMPRESSION: 1. No evidence for acute process. 2. Mild to moderate hip osteoarthrosis.
== END | disposition home or self-care (01) ==
LOC: RADXRMAIN 15:23
PROVIDERS: ATTEND Family Medicine
DX: M16.11 Unilateral primary osteoarthritis, right hip (principal)
CPT/HCPCS: 73502

== ENCOUNTER → 2024-08-22 | Outpatient (CLI) | payer OTHER ==
[2024-08-22 19:22] LABS: ALT 27 U/L (10-49); AST 27 U/L (14-35); Chol/HDL Ratio 3.37 Ratio; LDL Cholesterol,Calculated 34.8 mg/dL (0.0-131.0)
== END | disposition home or self-care (01) ==
LOC: LABWHC1 13:29
PROVIDERS: ATTEND Family Medicine
DX: E78.2 Mixed hyperlipidemia (principal)
CPT/HCPCS: 36415; 80061; 84450; 84460

== ENCOUNTER → 2024-10-11 | Outpatient (CLI) | payer OTHER ==
[2024-10-11 14:16] LABS: African American GFR (CKD) >90 (>60 ml/min/1.73 sqM); Blood Urea Nitrogen 10 mg/dL (9-20); Non-African American GFR(CKD) >90 (>60 ml/min/1.73 sqM)
--- NOTE | 2024-10-11 15:38 | CT ---
EXAMINATION TYPE: CT angio chest DATE OF EXAM: 10/11/2024 3:29 PM COMPARISON: r CLINICAL INDICATION: Male, 63 years old with history of I71.4, I71.20, Pt order is for PE protocol, b ut test reason is for aortic aneurysm. Pt states they are looking at aneurysm but also the heart. Att empts were made to reach Dr. Hart, but not successful. Running test as PE, will attempt to get lexii th Pulmonary artery and aorta in scan. TECHNIQUE: CT of the chest is performed on a spiral scan at 2 mm thick sections. Study is performed with intravenous contrast timed for evaluation for pulmonary embolism. This will limit additional po rtions of the evaluation. 3-D MIP images reconstructed by the technologist are reviewed on the compu ter in the coronal and sagittal planes. Contrast used:100ml mL of Isovue 370 with IV Contrast, (none if empty) Oral contrast used: (none if empty) CT DLP: 641 mGycm, Automated exposure control for dose reduction was used. FINDINGS: No persistent filling defects are evident to suggest an acute pulmonary embolism. No mediastinal or hilar adenopathy enlarged by CT criteria is evident. The ascending aorta diameter at the level of the main pulmonary artery is 4.1 cm. The main pulmonary artery diameter at the bifurcation is 3.3 cm. Lung windows are clear. Limited CT sections were through the upper abdomen. Upper abdomen appears unremarkable. IMPRESSION: 1. 1. No acute pulmonary embolism. 2. No acute pulmonary process. 3. Ascending thoracic aortic aneurysm of 4.1 cm, stable from comparison. [facility], Workstation: [id number], 10/11/2024 3:35 PM
== END | disposition home or self-care (01) ==
LOC: RADCTMAIN 13:18
PROVIDERS: ATTEND Family Medicine
DX: I71.21 Aneurysm of the ascending aorta, without rupture (principal); I71.40 Abdominal aortic aneurysm, without rupture, unspecified
CPT/HCPCS: 82565; 84520; 71275; 36415; Q9967